=== PATIENT | female | born 1990 ===

== ENCOUNTER 2016-08-13 09:21 | Emergency (ER) | payer BC, MEDICAID ==
[2016-08-13 10:56] VITALS: BP 126/78
--- NOTE | 2016-08-13 11:15 | UC ---
Skin Complaint HPI - HPI Summary HPI Summary: concerned she may have Lyme, has felt terrible for a few days has a rash on her back , fatigued - History of Current Complaint Chief Complaint: UCSkin Time Seen by Provider: 08/13/16 11:09 Stated Complaint: TICK BITE RASH&SYMPTOMS Hx Obtained From: Patient Hx Last Menstrual Period: Currently menstruating ?: No Onset/Duration: Sudden Onset, Lasting Days, Still Present Timing: Constant Onset Severity: Moderate Current Severity: Moderate Pain Intensity: 3 Pain Scale Used: 0-10 Numeric Character: Redness Aggravating: Nothing Alleviating: Nothing Associated Signs & Symptoms: Positive: Chills Related History: Possible Reaction to: Insect - Allergy/Home Medications Allergies/Adverse Reactions: Allergies Allergy/AdvReac Type Severity Reaction Status Date / Time Seasonal Allergies Allergy Congestion Uncoded 08/13/16 10:57 Wheat Allergy Hives Uncoded 08/13/16 10:58 Review of Systems Constitutional: Negative Skin: Rash - red rash with small blister on her back Eyes: Negative ENT: Negative Respiratory: Negative Cardiovascular: Negative Gastrointestinal: Negative Genitourinary: Negative Motor: Negative Neurovascular: Negative Musculoskeletal: Arthralgia, Myalgia Neurological: Negative Psychological: Negative All Other Systems Reviewed And Are Negative: Yes PMH/Surg Hx/FS Hx/Imm Hx Previously Healthy: Yes Endocrine History Of: Denies: Diabetes, Thyroid Disease Cardiovascular History Of: Denies: Cardiac Disorders, Hypertension Respiratory History Of: Denies: COPD, Asthma GI/ History Of: Denies: Ulcer - Surgical History Surgical History: Yes Surgery Procedure, Year, and Place: left knee meniscectomy, acl repair - Family History Known Family History: Positive: None - Social History Occupation: Employed Full-time - [employer] Lives: With Family Alcohol Use: Rare Substance Use Type: Marijuana Substance Use Comment - Amount & Last Used: once in a while Smoking Status (MU): Never Smoked Tobacco Physical Exam Triage Information Reviewed: Yes Appearance: Well-Appearing, No Pain Distress, Well-Nourished Vital Signs: Initial Vital Signs Temp 99.6 F 08/13/16 10:48 Pulse 106 08/13/16 10:48 Resp 18 08/13/16 10:48 BP 126/78 08/13/16 10:48 Pulse Ox 100 08/13/16 10:48 Vital Signs Reviewed: Yes Eye Exam: Normal Eyes: Positive: Conjunctiva Clear ENT Exam: Normal ENT: Positive: Normal ENT inspection, Hearing grossly normal, Pharynx normal, TMs normal. Negative: Nasal congestion, Nasal drainage, Tonsillar swelling, Tonsillar exudate, Trismus, Muffled/hoarse voice Dental Exam: Normal Neck exam: Normal Neck: Positive: Supple, Nontender, No Lymphadenopathy Respiratory Exam: Normal Respiratory: Positive: Chest non-tender, Lungs clear, Normal breath sounds, No respiratory distress, No accessory muscle use Cardiovascular Exam: Normal Cardiovascular: Positive: RRR, No Murmur, Pulses Normal, Brisk Capillary Refill Musculoskeletal Exam: Normal Musculoskeletal: Positive: Strength Intact, ROM Intact, No Edema Neurological Exam: Normal Neurological: Positive: Alert, Muscle Tone Normal Psychological Exam: Normal Skin Exam: Normal Course/Dx - Course Course Of Treatment: Amoxicillin, Bactrim stop amoxicillin if Lyme Negative, warm compresses follow with pcp - Differential Diagnoses - Skin Complaint Differential Diagnoses: Cellulitis, Impetigo, MRSA, Tick Born Illness - Diagnoses Provider Diagnoses: Cellulitis on back, Tick exposure Discharge - Discharge Plan Condition: Stable Disposition: HOME Prescriptions: Amoxicillin CAP* [Amoxicillin 500 MG CAP*] 500 mg PO TID #63 cap Sulfamethox/Trimethoprim DS* [Bactrim DS 800/160 TAB*] 1 tab PO BID #14 tab Patient Education Materials: Lyme Disease (ED), Cellulitis (ED), Tick Bite (ED) , Heat Pack Application (ED) Referrals: [facility] [place] PH[facility]IAN REFERRAL [Outside] - 1 Week No Primary Care Phys,NOPCP [Primary Care Provider] -
== END 2016-08-13 11:30 | disposition home or self-care (01) ==
LOC: UCEAST 09:21
DX: S80.262A Insect bite (nonvenomous), left knee, initial encounter (principal); L03.116 Cellulitis of left lower limb; W57.XXXA Bitten or stung by nonvenomous insect and other nonvenomous arthropods, initial encounter; Y93.89 Activity, other specified; Y92.9 Unspecified place or not applicable; R53.83 Other fatigue
CPT/HCPCS: 86618; 99202; G0463